=== PATIENT | female | born 1980 | race Caucasian/White ===

== ENCOUNTER → 2018-01-18 08:04 | Outpatient (CLI) | payer BC, SELFPAY ==
[2018-01-18 11:13] LABS: HCT 40.4 % (36.0-46.0); HGB 12.8 g/dL (12.0-15.5); Mean Corp. HGB Concentration 31.7 g/dL (32.0-36.0); Mean Corpuscular Volume 82.1 fL (80-95); Mean Platelet Volume 11.7 fL (8.0-11.0); Platelet Count 325 x1000/uL (130-400); RBC 4.92 m/cumm (4.00-5.20); RBC Distribution Width 14.6 % (11.7-14.6); White Blood Cell Count 7.69 k/cumm (4.4-10.8)
[2018-01-18 11:17] LABS: Iron 77 ug/dL (50-175)
[2018-01-18 11:52] LABS: Ferritin 74 ng/mL (8-388)
== END ==
PROVIDERS: PCP Family Medicine; Visit Provider Family Medicine
DX: D64.9 Anemia, unspecified (principal)
CPT/HCPCS: 36415; 85027; 82728; 83540

== ENCOUNTER → 2018-01-20 09:11 | Outpatient (REF) | payer BC, SELFPAY ==
--- NOTE | 2018-01-20 08:30 | PAPFT_PTH ---
PATIENT: Pauly Abbasi LOC: [facility] U#:[id number] AGE/SX: 44/F ROOM: RE01/20/[address]: Amanda Lopez MD : 1980 BED: DIS: SPEC #: [id number] RECD: 01/20/18 12:57 STATUS: GIA REKamlesh #: [id number] LIZZETH: 01/20/18 08:[address]: Amanda Lopez DEPT: [facility] Cytology RECD BY: Nory Collazo ENTERED: 01/20/18 12:57 SP TYPE: PAPFT OTHR DR: Sienna Baxter MD Tissues: 1 - CX/ENDOCX FOR PAP SMEARS Procedures: PAP THIN PREP/UVM Screening HPV DNA PROBE Comments: [id number]
== END ==
LOC: LBN 09:11
PROVIDERS: PCP Family Medicine; Visit Provider Obstetrics & Gynecology
DX: Z12.4 Encounter for screening for malignant neoplasm of cervix (principal); Z11.51 Encounter for screening for human papillomavirus (HPV)
CPT/HCPCS: 88142; 87624

== ENCOUNTER 2019-01-19 03:54 | Outpatient (CLI) | payer BC, SELFPAY ==
[2019-01-19 10:48] LABS: Hemoglobin A1C 5.6 % (4.5-6.2)
[2019-01-19 10:51] LABS: Iron 64 ug/dL (50-175)
[2019-01-19 11:06] LABS: Calculated LDL 111 mg/dL; Cholesterol 185 mg/dL (50-200); Ferritin 82 ng/mL (8-388); HDL Cholesterol 40 mg/dL (40-60); Triglyceride 173 mg/dL (30-150)
[2019-01-22 08:12] LABS: Vitamin D 25 Total 17.6 ng/ml (30-100)
== END 2019-01-19 04:14 ==
PROVIDERS: PCP Family Medicine; Visit Provider Nurse Practitioner
DX: Z13.1 Encounter for screening for diabetes mellitus (principal); L65.9 Nonscarring hair loss, unspecified; R79.0 Abnormal level of blood mineral; Z13.6 Encounter for screening for cardiovascular disorders
CPT/HCPCS: 36415; 80061; 82306; 83721; 82728; 83036; 83540

== ENCOUNTER 2020-01-22 04:44 | Outpatient (CLI) | payer BC, SELFPAY ==
[2020-01-22 12:28] LABS: HCT 40.5 % (36.0-46.0); HGB 12.8 g/dL (11.2-15.7)
[2020-01-22 12:42] LABS: Iron 64 ug/dL (50-170); Total Iron Binding Capacity 298 ug/dL (250-450); Transferrin Sat 21 % (15-50)
[2020-01-22 12:53] LABS: Ferritin 75 ng/mL (8-252)
[2020-01-24 05:21] LABS: Vitamin D 25 Total 23.8 ng/ml (30-100)
== END 2020-01-22 05:04 ==
PROVIDERS: PCP Family Medicine; Visit Provider Family Medicine
DX: E61.1 Iron deficiency (principal); E55.9 Vitamin D deficiency, unspecified
CPT/HCPCS: 36415; 82306; 82728; 83540; 83550; 85014; 85018

== ENCOUNTER 2021-01-20 14:19 | Outpatient (REF) | payer BC, SELFPAY ==
--- NOTE | 2021-01-20 10:30 | PAPFT_PTH ---
PATIENT: Pauly Abbasi LOC: [facility] U#:[id number] AGE/SX: 40/F ROOM: RE01/20/[address]: CECY Fam : 1980 BED: DIS: 01/20/2021 SPEC #: [id number] RECD: 01/20/21 16:37 STATUS: GIA REKamlesh #: [id number] LIZZETH: 01/20/21 10:[address]: Jesica Barrera DEPT: [facility] Cytology RECD BY: Nory Collazo ENTERED: 01/20/21 16:37 SP TYPE: PAPFT RASHEED DR: Sienna Baxter MD Tissues: 1 - CX/ENDOCX FOR PAP SMEARS Procedures: PAP THIN PREP/UVM Screening HPV DNA PROBE Comments: [id number]
== END 2021-01-20 14:20 | disposition home or self-care (01) ==
LOC: LBN 14:19
PROVIDERS: PCP Family Medicine; Visit Provider Nurse Practitioner Family
DX: Z12.4 Encounter for screening for malignant neoplasm of cervix (principal); Z11.51 Encounter for screening for human papillomavirus (HPV)
CPT/HCPCS: 88142; 87624

== ENCOUNTER 2021-02-02 09:02 | Outpatient (CLI) | payer BC, SELFPAY ==
[2021-02-02 12:32] LABS: HCT 41.5 % (36.0-46.0); HGB 12.9 g/dL (11.2-15.7)
[2021-02-02 12:53] LABS: Iron 70 ug/dL (50-170)
[2021-02-02 13:02] LABS: Ferritin 89 ng/mL (8-252)
[2021-02-02 13:12] LABS: Vitamin D 25 Total 24.1 ng/mL (30-100)
== END 2021-02-02 09:03 | disposition home or self-care (01) ==
LOC: LOS 09:02
PROVIDERS: PCP Family Medicine; Visit Provider Family Medicine
DX: E55.9 Vitamin D deficiency, unspecified (principal); R79.0 Abnormal level of blood mineral
CPT/HCPCS: 36415; 82306; 82728; 83540; 85014; 85018

== ENCOUNTER 2022-03-10 01:15 | Emergency (ER) | payer BC, SELFPAY ==
[2022-03-10] VITALS (34 sets, daily range): BP systolic 115–130; BP diastolic 51–90; PULSE 70–100; RESP 11–26; TEMP 36.3–36.7; O2SAT 96–99
--- NOTE | 2022-03-10 01:23 | ED.GENADUL_ITS ---
Discharge Plan Disposition Patient Disposition: HOME Condition: Improving Discharge Details Clinical Impression: Abscess, peritonsillar Primary Care Provider: Nini Moreira ED Provider: Barron Schreiber [place] Meds and New Rx's Prescriptions: New clindamycin HCl 300 mg capsule 300 mg PO Q6H Qty: 30 0RF Continued cholecalciferol (vitamin D3) [Vitamin D3] 10 mcg (400 unit) tablet 10 mcg PO DAILY semaglutide (weight loss) 0.25 mg/0.5 mL pen injector 0.25 mg subcut QWEEK Qty: 2 0RF Rx Instructions: administer weeks 1 through 4 of therapy iron 18 MG tablet 65 mg PO DAILY Discontinued penicillin V potassium 500 mg tablet 500 mg PO TID Qty: 30 0RF Discharge Instructions Additional Instructions: You were seen in the ED for a sore throat that was worsening despite penicillin. CT scan suggests peritonsillar abscess. You were treated with IV clindamycin and received another dose of steroids. I spoke with Dr. Kimbrough who will see you in his office this morning. We will discontinue the penicillin and you will need to rock picker a new prescription for clindamycin today. Return to ED for any difficulty breathing, inability to swallow, worse pain, other concerns. Referrals: Ten Kimbrough MD [ [facility] STAFF PHYSICIAN] - Medical Decision Making Patient presenting with continued pain and swelling in her throat and neck despite treatment with IM Solu-Medrol and oral penicillin. She is afebrile and does not appear toxic. She has normal breathing and is handling her secretions. She does have asymmetric right greater than left tonsil swelling which potentially represents a RN CLINICAL APPEALS versus tonsillar cellulitis. She definitely has significant anterior cervical adenopathy. IV established and laboratory studies sent. Fluids started. IV clindamycin given. A dose of Toradol and Decadron given. CT scan of the neck ordered. Patient does have elevated white count at 14.5. Banks screen is negative. No report of atypical lymphs. Chemistries with hypokalemia which will be repleted intravenously. CT scan suggestive of of multiloculated abscess right tonsil with associated cervical adenopathy. No definitive large fluid collection. Discussed with patient. Will hold in ED overnight to discuss with ENT in the morning. Patient agreeable with plan. Discussed with Dr. Kimbrough who was able to see the CT scan. Plan is repeat dose of clindamycin at 8 AM and discharge from the ED to his office to be seen there. She will continue on clindamycin 300 mg every 6 hours. She reports feeling much better at this point. Return precautions discussed. Medical Records Medical records reviewed: Yes I reviewed the patient's medical records. Lab Data Lab results reviewed: Yes I reviewed the patient's lab results. HPI General Mode of arrival: ambulatory . Date/Time Provider Initiated Documentation: 03/10/22 01:23 . Limitations to Documentation: no limitations . Information obtained by: patient, RN notes reviewed and old records reviewed . HPI Narrative: Patient is presenting to ED with worsening sore throat and swelling to her neck. Patient reports developing sore throat over the weekend. She was seen at [facility] on Tuesday and diagnosed with strep. She was started on penicillin. She was given a shot of Solu-Medrol due to the swelling in her throat. Patient reports pain has not changed and she feels like the neck swelling and throat swelling is worse. She is able to swallow. She has no difficulty breathing. She denies fever. She denies cough, chest pain, shortness of breath. She has had no nausea or vomiting. She has been using acetaminophen for pain control. Related Data Home Medications Medication Instructions Recorded Confirmed iron 18 mg tablet 65 mg PO DAILY 01/18/18 03/10/22 cholecalciferol (vitamin D3) 10 10 mcg PO DAILY 12/11/19 03/10/22 mcg (400 unit) tablet (Vitamin D3) semaglutide (weight loss) 0.25 0.25 mg (0.5 mL) subcut QWEEK #2 mL 02/12/22 03/10/22 mg/0.5 mL subcutaneous pen injector clindamycin HCl 300 mg capsule 300 mg PO Q6H #30 caps 03/10/22 Previous Rx's Medication Instructions Recorded semaglutide (weight loss) 0.25 0.25 mg (0.5 mL) subcut QWEEK #2 mL 02/12/22 mg/0.5 mL subcutaneous pen injector clindamycin HCl 300 mg capsule 300 mg PO Q6H #30 caps 03/10/22 Allergies Allergy/AdvReac Type Severity Reaction Status Date / Time glyburide Allergy Mild Skin Rash Verified 03/10/22 01:25 Review of Systems Narrative: 03/26 Review of Systems completed and is negative except as stated above in HPI (Systems reviewed: Const, Eyes, ENT, Resp, CV, GI, , MSK, Skin, Neuro) PFSH All Active Problems (Updated 03/10/22 @ 07:20 by Barron Schreiber MD) Abscess, peritonsillar (Acute) Hair loss (Acute 12/27/13) good response to iron suppl.: ferritin >70 - Depressive disorder (Acute) Anxiety (Acute) Abn glucose in preg-unsp (Acute) Impaired glucose tolerance during (Acute) Low ferritin (Acute) Morbid obesity with BMI of 45.0-49.9, adult (Acute) Medical History History of gestational diabetes mellitus (GDM) Surgical History Ligation of fallopian tube Family History Mother Essential hypertension Depression Hyperlipidemia Father Essential hypertension Heart disease Hyperlipidemia Diabetes Sister No problems noted. Brother No problems noted. Maternal Grandfather , 78 Essential hypertension Heart disease Hyperlipidemia Stroke Paternal Grandfather , 78 Diabetes Essential hypertension Depression Heart disease Hyperlipidemia Stroke Maternal Grandmother Breast cancer Diabetes Paternal Grandmother , 80 Essential hypertension Heart disease Daughter No problems noted. Daughter No problems noted. Social History Smoking/Tobacco Use Status: Never Second Hand Exposure: No Smoking risk assessment performed?: Yes Alcohol Intake: never Drug use: Never Substance use type: does not use Caregiver/Support person: No Household members: spouse and children Housing: house Number of Children: 2 Communication Needs: None Education Level: master's degree Do you need help understanding health information?: Never current occupation: works as a teacher at [employer], 3rd, 4th, 5th. Pets and animals: Yes Pets and animals: dog(s) and farm animals Sexually active: Yes Do you think of yourself as: straight/heterosexual Current gender identity: female What is your relationship status?: How often do you talk on the phone with friends or family?: twice per week How often do you get together with friends or relatives?: twice per week Do you belong to any clubs or organized social groups?: no Panel score (0-1 are the most socially isolated patients): 2 Duration: 15-30 minutes/day Frequency: 5-6 times per week Thelma/Baptist: None Special thelma needs: No Seatbelt use: always Helmet use: Yes Helmet use: always Drive intox or ride w/intox courier delivery driver: No Exam Narrative Exam Narrative: Const: Obese female in NAD. HEENT: NC/AT. Normal facial exam. TMs normal bilaterally. Oropharynx with asymmetric swelling of the tonsils right greater than left with erythema and slight exudate. Uvula is midline. Eyes: Normal conjunctiva and sclera. Neck: Supple. Trachea midline. Bilateral large anterior cervical adenopathy. Lungs: Normal respiratory effort. Lungs are clear. Cor: RRR without murmur/gallop. Good radial pulses. GI: Soft and ND Neuro: A+O x 3. Normal speech, mentation, gait. Cranial nerves II - XII grossly intact. No gross motor or sensory deficit. Ext: No C/C/E. Skin: Warm and dry without rash.
--- NOTE | 2022-03-10 01:30 | DI.CT_ITS ---
Exam(s) CT NECK W EXAM: CT NECK W CLINICAL HISTORY: right sided throat pain/swelling; eval for abscess TECHNIQUE: COMPARISON: No exams were available for comparison FINDINGS: CT examination of the cervical region was performed with bolus infusion of 100 cc of Omnipaque 350. Images obtained through the brain are unremarkable. Orbital structures appear intact. No sinus mast oid pathology. There is enlargement of the palatine tonsils bilaterally, right greater than left, with heterogeneous appearance of the tonsils bilaterally. Findings are suggestive of acute tonsillitis with no drainab le abscess collection identified. Mild enlargement of the right submandibular gland is noted compare d to the left. Parotid glands are unremarkable in appearance. Tracheolaryngeal structures appear in tact except for deviation of the pharynx to the left at the level of the right palatine tonsil. Mild nonspecific prominence of cervical lymph nodes noted. Visualized lung apices are clear. IMPRESSION: The appearance is consistent with tonsillitis, predominantly involving right palatine tonsil, no drai nable abscess identified. RADIATION DOSE DELIVERED: 509.71mGy.cm Total DLP !Error CTDIvol DATA REPOSITORY: All CT scans at this facility are submitted to the National Radiology Data Registry (NRDR) Dose Index Registry (DIR) with the [employer] (ACR). RADIATION OPTIMIZATION: All CT scans at this facility use at least one of these dose optimization te chniques: automated exposure control; mA and/or kV adjustment per patient size (includes targeted exa ms where dose is matched to clinical indication); or iterative reconstruction.
[2022-03-10] MEDS: Normal Saline 1,000 ML 1000 ML IV (01:50)
[2022-03-10 01:55] LABS: Abs Immature Grans 0.04 10^3/uL (0.0-0.06); Absolute Basophil Count 0.09 10^3/uL (0.0-0.2); Absolute Eosinophil Count 0.09 10^3/uL (0.0-0.7); Absolute Lymphocyte Count 3.18 10^3/uL (1.2-3.4); Absolute Monocyte Count 1.06 10^3/uL (0.1-0.8); Absolute Neutrophil Count 10.01 10^3/uL (1.2-6.7); Basophils % 0.6; Eosinophils % 0.6; Immature Grans % 0.3; MCH 25.4 pg (27.0-33.0); MCHC 31.6 % (32.0-36.0); MCV 81 fL (80-95); Monocytes % 7.3; Neutrophils % 69.2; Platelet Count 311 10^3/uL (130-400); RBC 4.72 10^6/uL (3.93-5.22); RDW 14.5 % (11.7-14.6); RDW-SD 42.7 fL; WBC 14.46 10^3/uL (4.4-10.8)
[2022-03-10 02:01] LABS: Mono Screening Negative (Negative)
[2022-03-10 02:04] LABS: Anion Gap 9.1 mmol/L (3-11); BUN 12 mg/dL (7-18); CO2 25.9 mmol/L (21.0-32.0); CREATININE 0.9 mg/dL (0.55-1.02); Chloride 102 mmol/L (98-107); Estimated GFR 82.37 (mL/min/1.73m2); Glucose 116 mg/dL (74-106); Sodium 137 mmol/L (136-145)
[2022-03-10 02:05] LABS: Potassium 2.9 mmol/L (3.5-5.1)
--- NOTE | 2022-03-10 02:14 | NUR.NOTE ---
refused urine test. says she has no fallopian tubes. does not want test.Nursing Note:
[2022-03-10] MEDS: Omnipaque 350 MG/ML 100 ML BTL IJ (02:21)
[2022-03-10] MEDS: Normal Saline Flush 10 ML SYR IVP (02:22)
[2022-03-10] MEDS: Dexamethasone 10 MG/ML VIAL 8 MG IVP (02:35)
[2022-03-10] MEDS: Ketorolac 15 MG/ML VIAL IVP (02:38)
[2022-03-10] MEDS: CLINDAMYCIN 900 MG/50 ML BAG 100 MG IVPB (02:40)
--- NOTE | 2022-03-10 02:41 | DI.VRAD_ITS ---
PROCEDURE INFORMATION: Exam: CT Neck With Contrast Exam date and time: 03/10/2022 2:08 AM Age: 41 years old Clinical indication: Patient HX: Right sided throat pain/swelling; Eval for abscess TECHNIQUE: Imaging protocol: Computed tomography of the neck with contrast. Radiation optimization: All CT scans at this facility use at least one of these dose optimization techniques: automated exposure control; mA and/or kV adjustment per patient size (includes targeted exams where dose is matched to clinical indication); or iterative reconstruction. Contrast material: OMNIPAQUE 350; Contrast volume: 100 ml; Contrast route: INTRAVENOUS (IV); COMPARISON: No relevant prior studies available. FINDINGS: Oral cavity: Normal rip sawyer spaces. Pharynx: Large palatine tonsils noted bilaterally, right greater than left. Numerous small low-attenuation structures are present in the right palatine tonsil, extending into the soft palate. There is no air within the collections. The collections measure up to 1.2 cm diameter. Adenoid tissues are unremarkable. Parapharyngeal fat stranding is noted on the right. Larynx: Normal epiglottis. Unremarkable larynx. Prevertebral and retropharyngeal spaces: Unremarkable. No abnormal retropharyngeal fluid. Salivary glands: Fat stranding is observed around the right submandibular gland. No fluid collections observed. Normal left submandibular gland. Normal parotid glands. Thyroid: Unremarkable thyroid. Lymph nodes: Cervical lymph nodes are large bilaterally. A right level IIa lymph node measures 1.6 x 2.1 cm, axial image 47. Trachea: Visualized trachea is unremarkable. Lungs: Unremarkable as visualized. Bones/joints: No significant degenerative changes observed in the cervical spine. Soft tissues: No abnormal soft tissue gas. IMPRESSION: Suspect multiloculated abscess in the right palatine tonsil. Dictated and Authenticated by: Jaquan Almendarez MD. Ordering:ROSALINE Mart MD
[2022-03-10] MEDS: POTASSIUM CHLORIDE 10 MEQ/100 ML BAG 100 MEQ IVPB (03:25)
[2022-03-10] MEDS: Normal Saline 1,000 ML 125 ML IV (05:10)
[2022-03-10] MEDS: CLINDAMYCIN 900 MG/50 ML BAG 50 MG IVPB (08:18)
== END 2022-03-10 09:05 | disposition home or self-care (01) ==
PROVIDERS: Emergency Provider Emergency Medicine; PCP Family Medicine
DX: J36 Peritonsillar abscess (principal); E87.6 Hypokalemia; D72.829 Elevated white blood cell count, unspecified
CPT/HCPCS: 36415; 70491; 80048; 96361; 96365; 96366; 96367; 96375; 99285; 85025; 86308; 99284; J1100; J1885; J3480; J3490

== ENCOUNTER 2022-05-04 08:03 | Outpatient (CLI) | payer BC, SELFPAY ==
[2022-05-04 12:39] LABS: Abs Immature Grans 0.02 10^3/uL (0.0-0.06); Absolute Basophil Count 0.07 10^3/uL (0.0-0.2); Absolute Eosinophil Count 0.19 10^3/uL (0.0-0.7); Absolute Lymphocyte Count 3.24 10^3/uL (1.2-3.4); Absolute Monocyte Count 0.51 10^3/uL (0.1-0.8); Absolute Neutrophil Count 4.34 10^3/uL (1.2-6.7); Basophils % 0.8; Eosinophils % 2.3; HCT 41.7 % (36.0-46.0); HGB 13.4 g/dL (11.2-15.7); Immature Grans % 0.2; Lymphocytes % 38.7; MCH 26.3 pg (27.0-33.0); MCHC 32.1 % (32.0-36.0); MCV 82 fL (80-95); MPV 11.3 fL (8.0-11.0); Monocytes % 6.1; Neutrophils % 51.9; Platelet Count 383 10^3/uL (130-400); RBC 5.09 10^6/uL (3.93-5.22); RDW 15.2 % (11.7-14.6); RDW-SD 45.9 fL; WBC 8.37 10^3/uL (4.4-10.8)
[2022-05-04 13:02] LABS: ALT 18 U/L (14-59); AST 32 U/L (15-37); Albumin 3.9 g/dL (3.4-5.0); Alkaline Phosphatase 72 U/L (46-116); Anion Gap 8.7 mmol/L (3-11); BUN 15 mg/dL (7-18); Bilirubin, Total 0.3 mg/dL (0.2-1.0); CO2 27.3 mmol/L (21.0-32.0); CREATININE 0.8 mg/dL (0.55-1.02); Calcium 8.9 mg/dL (8.5-10.1); Chloride 103 mmol/L (98-107); Estimated GFR 94.87 (mL/min/1.73m2); Glucose 93 mg/dL (74-106); Potassium 4.4 mmol/L (3.5-5.1); Sodium 139 mmol/L (136-145); TSH (W/Ref FT4) 2.95 uIU/mL (0.36-3.74); Total Protein 7.6 g/dL (6.4-8.2)
== END 2022-05-04 08:04 | disposition home or self-care (01) ==
LOC: LOS 08:04
PROVIDERS: PCP Family Medicine; Referring Provider Family Medicine; Visit Provider Family Medicine
DX: E66.01 Morbid (severe) obesity due to excess calories (principal); Z68.41 Body mass index [BMI] 40.0-44.9, adult; D72.829 Elevated white blood cell count, unspecified
CPT/HCPCS: 36415; 80053; 84443; 85025

== ENCOUNTER 2023-02-18 01:40 | Outpatient (CLI) | payer BC, SELFPAY ==
[2023-02-18 12:20] LABS: HCT 41.5 % (36.0-46.0); MCH 25.6 pg (27.0-33.0); MCHC 31.3 % (32.0-36.0); MCV 82 fL (80-95); Platelet Count 373 10^3/uL (130-400); RBC 5.07 10^6/uL (3.93-5.22); RDW 14.3 % (11.7-14.6); RDW-SD 42.4 fL; WBC 8.05 10^3/uL (4.4-10.8)
[2023-02-18 12:30] LABS: Iron 63 ug/dL (50-170); Total Iron Binding Capacity 312 ug/dL (250-450); Transferrin Sat 20 % (15-50)
[2023-02-18 12:49] LABS: ALT 22 U/L (14-59); AST 13 U/L (15-37); Albumin 3.6 g/dL (3.4-5.0); Alkaline Phosphatase 72 U/L (46-116); BUN 15 mg/dL (7-18); Bilirubin, Total 0.3 mg/dL (0.2-1.0); CREATININE 0.8 mg/dL (0.55-1.02); Calcium 8.5 mg/dL (8.5-10.1); Calculated LDL 79 mg/dL (<100); Chloride 105 mmol/L (98-107); Cholesterol 153 mg/dL (<200); Estimated GFR 94.28 (mL/min/1.73m2); Glucose 96 mg/dL (74-106); HDL Cholesterol 44 mg/dL (40-60); Sodium 138 mmol/L (136-145); TSH (W/Ref FT4) 2.33 uIU/mL (0.36-3.74); Total Protein 7.5 g/dL (6.4-8.2); Triglyceride 154 mg/dL (<150)
[2023-02-21 11:22] LABS: HIV-1/2 Ag & Ab Screen Negative (Negative)
[2023-02-21 11:27] LABS: Hepatitis C Ab w Rflx HCV PCR Negative (Negative)
== END 2023-02-18 01:41 | disposition home or self-care (01) ==
LOC: LOS 01:40
PROVIDERS: PCP Family Medicine; Visit Provider Family Medicine
DX: E03.9 Hypothyroidism, unspecified (principal); L65.9 Nonscarring hair loss, unspecified; Z13.6 Encounter for screening for cardiovascular disorders; E66.01 Morbid (severe) obesity due to excess calories; Z00.00 Encounter for general adult medical examination without abnormal findings; Z68.41 Body mass index [BMI] 40.0-44.9, adult; R73.01 Impaired fasting glucose; R79.0 Abnormal level of blood mineral; Z11.4 Encounter for screening for human immunodeficiency virus [HIV]
CPT/HCPCS: 36415; 80053; 80061; 82306; 85027; 86803; 87389; 83036; 83540; 83550; 84443

== ENCOUNTER 2024-03-26 09:07 | Outpatient (REF) | payer BC, SELFPAY ==
--- NOTE | 2024-03-26 09:00 | PAPFT_PTH ---
PATIENT: Pauly Abbasi LOC: [facility] U#:[id number] AGE/SX: 43/F ROOM: RE03/26/[address]: Renetta Walton NP : 1980 BED: DIS: 03/26/2024 SPEC #: [id number] RECD: 03/26/24 12:53 STATUS: GIA REQ #: [id number] LIZZETH: 03/26/24 09:[address]: Isabelle BORJA,Renetta DEPT: [facility] Cytology RECD BY: Phuong Hoyt ENTERED: 03/26/24 12:54 SP TYPE: PAPFT OTHR DR: Nini Moreira Tissues: 1 - CX/ENDOCX FOR PAP SMEARS Procedures: PAP THIN PREP/UVM Screening HPV DNA PROBE Comments: [id number] (HPV 16 & 18/45)
== END 2024-03-26 09:08 | disposition home or self-care (01) ==
LOC: LBN 09:07
PROVIDERS: PCP Family Medicine; Visit Provider Nurse Practitioner Women's Health
DX: Z11.51 Encounter for screening for human papillomavirus (HPV) (principal); Z01.419 Encounter for gynecological examination (general) (routine) without abnormal findings
CPT/HCPCS: 88142; 87624

== ENCOUNTER 2024-03-31 10:06 | Outpatient (CLI) | payer BC, SELFPAY ==
--- NOTE | 2024-03-31 10:30 | DI.RAD_ITS ---
Exam(s) XR KNEE LT 3V AP,LAT,WENDY EXAM: XR KNEE LT 3V AP,LAT,WENDY CLINICAL HISTORY: knee pain and swelling. left. TECHNIQUE: 2D digital imaging was performed of the left knee. Three images were obtained. AP, late ral and PA tunnel views were obtained. COMPARISON: No exams were available for comparison FINDINGS: BONES: No acute fracture is present. No bony destructive lesion is seen. JOINTS: There are mild degenerative changes seen in the medial femoral tibial joint with joint space narrowing and osteophytes present. There is a joint effusion present. There is mild spurring of the posterior patella. No loose body. SOFT TISSUE: Normal. IMPRESSION: 1. Mild degenerative changes of the knee and small joint effusion. 2. No acute fracture or dislocation. DATA REPOSITORY: RADIATION DOSE DELIVERED:
--- NOTE | 2024-03-31 11:29 | DI.VRAD_ITS ---
PROCEDURE INFORMATION: Exam: XR Left Knee Exam date and time: 03/31/2024 10:40 AM Age: 43 years old Clinical indication: Other: Knee pain and swelling. Left TECHNIQUE: Imaging protocol: Radiologic exam of the left knee. Views: 3 views. COMPARISON: No relevant prior studies available. FINDINGS: Bones/joints: There is no evidence of acute fracture.There is no evidence of malalignment or dislocation. Mild joint space narrowing in the medial compartment may indicate early degenerative changes. Soft tissues: Normal. IMPRESSION: 1. There is no evidence of acute fracture.There is no evidence of malalignment or dislocation. 2. Mild joint space narrowing in the medial compartment may indicate early degenerative changes. Dictated and Authenticated by: Ira Dela Cruz MD. Ordering:SUZANNA Aceves MD
== END 2024-03-31 10:26 ==
PROVIDERS: PCP Family Medicine; Visit Provider Physician Assistant
DX: M17.12 Unilateral primary osteoarthritis, left knee (principal)
CPT/HCPCS: 73562

== ENCOUNTER 2024-03-31 11:16 | Outpatient (REF) | payer BC, SELFPAY ==
[2024-03-31 18:13] LABS: Abs Immature Grans 0.02 10^3/uL (0.0-0.06); Absolute Basophil Count 0.08 10^3/uL (0.0-0.2); Absolute Eosinophil Count 0.14 10^3/uL (0.0-0.7); Absolute Lymphocyte Count 2.56 10^3/uL (1.2-3.4); Absolute Monocyte Count 0.57 10^3/uL (0.1-0.8); Absolute Neutrophil Count 4.93 10^3/uL (1.2-6.7); Eosinophils % 1.7 %; HCT 42.3 % (36.0-46.0); HGB 13.4 g/dL (11.2-15.7); Immature Grans % 0.2 %; Lymphocytes % 30.8 %; MCH 26.4 pg (27.0-33.0); MCHC 31.7 % (32.0-36.0); MCV 83 fL (80-95); MPV 11.7 fL (8.0-11.0); Monocytes % 6.9 %; Neutrophils % 59.4 %; Platelet Count 370 10^3/uL (130-400); RBC 5.07 10^6/uL (3.93-5.22); RDW 14.4 % (11.7-14.6); RDW-SD 43.8 fL
[2024-03-31 18:14] LABS: ESR 27 mm/hr (0-20)
[2024-04-01 16:46] LABS: Rheumatoid Factor <8.6 IU/mL (<12.0)
[2024-04-02 11:02] LABS: Lyme Ab w Rflx to Lyme Confirm Negative (Negative)
[2024-04-02 15:31] LABS: ANA Interpretation Negative (Negative)
[2024-04-03 15:34] LABS: Anaplasma phagocytophilum Negative (Negative); B. miyamotoi PCR Negative (Negative); Babesia divergens/MO-1 Negative (Negative); Babesia duncani Negative (Negative); Babesia microti Negative (Negative); Ehrlichia chaffeensis Negative (Negative); Ehrlichia ewingii/canis Negative (Negative); Ehrlichia muris eauclairensis Negative (Negative)
== END 2024-03-31 11:17 | disposition home or self-care (01) ==
LOC: LBN 11:16
PROVIDERS: PCP Family Medicine; Visit Provider Physician Assistant
DX: M25.562 Pain in left knee (principal)
CPT/HCPCS: 85652; 87798; 85025; 86038; 86431; 86618

== ENCOUNTER 2024-04-27 00:14 | Outpatient (CLI) | payer BC, SELFPAY ==
--- NOTE | 2024-04-27 06:15 | DI.MRI_ITS ---
Exam(s) MR LOWER JOINT LT WO EXAM: MR LOWER JOINT LT WO CLINICAL HISTORY: left knee effusion,m25.462. TECHNIQUE: Multiplanar multisequence MRI was performed. COMPARISON: CR,XR XR KNEE LT 3V AP,LAT,WENDY from 03/31/2024 FINDINGS: BONES: There is no fracture or contusion pattern. Mild edema medial tibial plateau could be degener ative. Mild spurring at the medial femoral condyle and medial tibial plateau. Some red marrow recon version is seen. JOINTS: A large joint effusion is present. Articular cartilage: Patellofemoral joint: Thinning at the patellar apex extending down to bone. Medial femoral tibial joint: Thinning of cartilage over medial femoral condyle and medial tibial louie teau. Lateral femoral tibial joint: Articular cartilage is unremarkable. LIGAMENTS/TENDONS: Anterior Cruciate: Unremarkable. Posterior Cruciate: Unremarkable. Medial Collateral:Unremarkable. Lateral Collateral ligament complex: Unremarkable. Extensor mechanism: Unremarkable. Medial retinaculum: Unremarkable. Lateral retinaculum: Unremarkable. Popliteus: Unremarkable. MENISCI: The medial meniscus is peripherally displaced. Some high signal noted in the body and posterior horn . Findings suspicious for tear at the root. The lateral meniscus is unremarkable. MUSCLES: Unremarkable. SOFT TISSUES: Mild anterior soft tissue edema. Small Stephenson's cyst. IMPRESSION: Large joint effusion. Degenerative changes of the meniscus and medial femoral tibial joint space. Tear at the root of the posterior horn. 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 DATA REPOSITORY:
== END 2024-04-27 00:34 ==
LOC: DI 00:14
PROVIDERS: PCP Family Medicine; Visit Provider Family Medicine
DX: M23.222 Derangement of posterior horn of medial meniscus due to old tear or injury, left knee (principal)
CPT/HCPCS: 73721

== ENCOUNTER 2025-02-26 21:03 | Outpatient (REF) | payer BC, SELFPAY | END 2025-02-26 21:04 | disposition home or self-care (01) | LOC: LBN 21:03 | PROVIDERS: PCP Family Medicine; Visit Provider Physician Assistant | DX: L98.9 Disorder of the skin and subcutaneous tissue, unspecified (principal) | CPT/HCPCS: 87077; 87070; 87186; 87205 ==

== ENCOUNTER 2025-02-27 03:24 | Inpatient (IN) | payer BC, SELFPAY ==
[2025-02-27] VITALS (7 sets, daily range): BP systolic 114–149; BP diastolic 68–108; PULSE 82–102; RESP 16–22; TEMP 36.5–38.2; O2SAT 98–100
--- NOTE | 2025-02-27 03:30 | W.ED.GENAD ---
Discharge Plan Discharge Details Chief Complaint: EarProblem Primary Care Provider: Nini Moreira ED Provider: Barron Schreiber [facility] and New Rx's Prescriptions: No Action cholecalciferol (vitamin D3) [Vitamin D3] 10 mcg (400 unit) tablet 4,000 unit PO DAILY ofloxacin 0.3 % drops 10 drp otic (ear) DAILY 7 Days Qty: 5 0RF amoxicillin-pot clavulanate 875-125 mg tablet 1 tab PO Q12H Qty: 14 0RF iron 18 MG tablet 65 mg PO DAILY semaglutide (weight loss) 2.4 mg/0.75 mL pen injector 2.4 mg subcut QWEEK Qty: 3 5RF HPI General Mode of arrival: ambulatory. Date/Time Provider Initiated Documentation: 02/27/25 03:29. Limitations to Documentation: no limitations. Information obtained by: patient, RN notes reviewed and old records reviewed. HPI Narrative: Patient presents to ED with increasing pain and swelling involving the right ear and face. Patient reports that she began having ear discomfort about a week ago. Seem to get better after a couple of days and then worse. Seen at [facility] today and started on ofloxacin eardrops and Augmentin antibiotic. Overnight pain has become worse and she has developed swelling to the right side of her face. Has significantly decreased hearing. Is able to open and close mouth without difficulty. Denies difficulty breathing or swallowing. Denies significant headache. Related Data Home Medications ?Medication ?Instructions ?Recorded ?Confirmed iron 18 mg tablet 65 mg PO DAILY 01/18/18 02/27/25 cholecalciferol (vitamin D3) 10 4,000 unit PO DAILY 02/16/23 02/27/25 mcg (400 unit) tablet (Vitamin D3) semaglutide (weight loss) 2.4 2.4 mg (0.75 mL) subcut QWEEK #3 mL 12/10/24 02/27/25 mg/0.75 mL subcutaneous pen injector amoxicillin 875 mg-potassium 1 tab PO Q12H #14 tabs 02/26/25 02/27/25 clavulanate 125 mg tablet ofloxacin 0.3 % ear drops 10 drp otic (ear) DAILY 7 days #5 02/26/25 02/27/25 mL Previous Rx's ?Medication ?Instructions ?Recorded semaglutide (weight loss) 2.4 2.4 mg (0.75 mL) subcut QWEEK #3 mL 12/10/24 mg/0.75 mL subcutaneous pen injector amoxicillin 875 mg-potassium 1 tab PO Q12H #14 tabs 02/26/25 clavulanate 125 mg tablet ofloxacin 0.3 % ear drops 10 drp otic (ear) DAILY 7 days #5 02/26/25 mL Allergies Allergy/AdvReac Type Severity Reaction Status Date / Time glyburide Allergy Mild Skin Rash Verified 02/26/25 16:41 General SUKH: 3 Exam Narrative Exam Narrative: Const: Obese female in NAD. VS per triage. HEENT: NC/AT. Right preauricular swelling with mild tenderness but no erythema. Right ear canal completely closed and swollen, unable to visualize TM. Able to open and close mouth fully. Normal-appearing oropharynx and pharynx. Neck: Supple. Trachea midline. Bilateral anterior adenopathy. Lungs: Normal respiratory effort. Neuro: A+O x 3. Normal speech, mentation, gait. Cranial nerves II - XII grossly intact. No gross motor or sensory deficit. Medical Decision Making I reviewed the express care note from yesterday. TM was visualized and drainage/discharge was present and cultured. Gram stain for this specimen with many gram-negative rods present. Patient is not a known diabetic. However given the progressive worsening in less than 24 hours now with facial swelling should consider necrotizing external otitis. Will place IV and start fluids. Will dose with IV ciprofloxacin after blood cultures obtained. Morphine for pain control. Laboratory studies sent. CT scan of the temporal bones with and without contrast ordered. Patient white count slightly elevated to 12.95. Normal differential. Sed rate is normal. C-reactive protein elevated to 1.86. Hemoglobin A1c normal at 5.4. BMP normal. CT scan with and without contrast of the temporal bones are still pending at this time. Patient be signed out to oncoming ED physician Dr. Diallo. Patient has remained stable. No change in clinical status in regards to facial swelling, trismus, breathing or swallowing. Medical Records Medical records reviewed: Yes I reviewed the patient's medical records. Medical records narrative: see [facility] Lab Data Lab results reviewed: Yes I reviewed the patient's lab results. Lab results narrative: see [facility] PFSH All Active Problems Tear of medial meniscus of left knee (Acute) Degenerative arthritis of left knee (Acute) Effusion, left knee (Acute) Morbid obesity with BMI of 40.0-44.9, adult (Acute) Low ferritin (Acute) Anxiety (Acute) Depressive disorder (Chronic) Hair loss (Acute 12/27/13) good response to iron suppl.: ferritin >70 - Medical History History of gestational diabetes mellitus (GDM) Surgical History Ligation of fallopian tube Family History Mother Age: 70 Essential hypertension Depression Hyperlipidemia Father Age: 73 Essential hypertension Heart disease Hyperlipidemia Diabetes Sister No problems noted. Brother No problems noted. Maternal Grandfather , 78 Essential hypertension Heart disease Hyperlipidemia Stroke Paternal Grandfather , 78 Diabetes Essential hypertension Depression Heart disease Hyperlipidemia Stroke Maternal Grandmother Breast cancer Diabetes Paternal Grandmother , 80 Essential hypertension Heart disease Daughter No problems noted. Daughter No problems noted. Social History Smoking/Tobacco Use Status: Never Second Hand Exposure: No Smoking risk assessment performed?: Yes Alcohol Intake: current Alcohol Intake frequency: holidays/special occasions only Alcohol type: wine Drug use: Never Substance use type: does not use Caregiver/Support person: No Household members: spouse and children Housing: house Number of Children: 2 Communication Needs: None Education Level: master's degree Do you need help understanding health information?: Never current occupation: works as a teacher at [employer], 3rd, 4th, 5th. Pets and animals: Yes Pets and animals: dog(s) and farm animals Sexually active: Yes Do you think of yourself as: straight/heterosexual Current gender identity: female What is your relationship status?: How often do you talk on the phone with friends or family?: twice per week How often do you get together with friends or relatives?: twice per week Do you belong to any clubs or organized social groups?: no Panel score (0-1 are the most socially isolated patients): 2 Duration: 15-30 minutes/day Frequency: 5-6 times per week Thelma/Oriental Orthodox: None Special thelma needs: No Seatbelt use: always Helmet use: Yes Helmet use: always Drive intox or ride w/intox rickshaw driver: No Do you feel safe at home: Yes Do you feel safe in your relationship?: Yes Female Reproductive History Menstrual control method: permanent sterilization History History 2 Para 2 Hx # Term Pregnancies Multiple births Hx # Pregnancies Ectopic pregnancies AB induced Hx Number of Living Children AB spontaneous
--- NOTE | 2025-02-27 03:45 | DI.CT_ITS ---
Exam(s) CT TEMPORAL BONE WO/W EXAM: CT TEMPORAL BONE WO/W CLINICAL HISTORY: right otitis externa with facial swelling/pain. TECHNIQUE: Imaging Protocol: Axial computed tomography images with coronal and sagittal reformatted images were created and reviewed. CONTRAST MATERIAL: Intravenous: Omnipaque 350 Contrast volume:100 mL contrast route:IV - COMPARISON: No exams were available for comparison FINDINGS: Right temporal bone There is diffuse soft tissue swelling over the lateral right side of the face and circumferential swelling of the tissues of the right external auditory canal. There is some density seen in the right middle ear cavity just lateral to the ossicles. No evidence of obvious ossicle destruction. There is also some fluid in its lateral right mastoid air cells. The cochlea and vestibule appear unremarkable. Semicircular canals appear unremarkable. Left Temporal Bone: No significant findings. IMPRESSION: Findings are consistent with malignant otitis externa and there is also evidence of otitis media and ipsilateral mastoid effusion. There is prominent swelling over the right-side of the face. No gas in the soft tissues. [facility] preliminary report was reviewed Findings discussed by phone with ER physician 02/27/2025 12:30 p.m. RADIATION DOSE DELIVERED: 372.39mGy.cm Total DLP DATA REPOSITORY: All CT scans at this facility are submitted to the National Radiology Data Registry (NRDR) Dose Index Registry (DIR) with the [employer] (A[employer]). RADIATION OPTIMIZATION: All CT scans at this facility use at least one of these dose optimization techniques: automated exposure control; mA and/or kV adjustment per patient size (includes targeted exams where dose is matched to clinical indication); or iterative reconstruction.
[2025-02-27 04:02] LABS: Abs Immature Grans 0.03 10^3/uL (0.0-0.06); HCT 41.2 % (36.0-46.0); HGB 13.1 g/dL (11.2-15.7); Immature Grans % 0.2 %; MCH 26.3 pg (27.0-33.0); MCHC 31.8 % (32.0-36.0); MCV 83 fL (80-95); MPV 10.4 fL (8.0-11.0); Platelet Count 371 10^3/uL (130-400); RBC 4.99 10^6/uL (3.93-5.22); RDW 14.0 % (11.7-14.6); RDW-SD 41.9 fL; WBC 12.95 10^3/uL (4.4-10.8)
[2025-02-27 04:05] LABS: ESR 17 mm/hr (0-20)
[2025-02-27 04:16] LABS: Anion Gap 9.2 mmol/L (3-11); BUN 16 mg/dL (7-18); C-Reactive Protein 1.86 mg/dL (<or=0.5); CO2 28.8 mmol/L (21.0-32.0); Calcium 9.2 mg/dL (8.5-10.1); Chloride 103 mmol/L (98-107); Estimated GFR 109.30 (mL/min/1.73m2); Glucose 105 mg/dL (74-106); Potassium 3.7 mmol/L (3.5-5.1); Sodium 141 mmol/L (136-145)
[2025-02-27] MEDS: Omnipaque 350 MG/ML 100 ML BTL IJ (04:30)
[2025-02-27] MEDS: Normal Saline - Diluent 50 ML VIAL IJ (04:30)
[2025-02-27] MEDS: Normal Saline Flush 10 ML SYR IVP ×2 (04:30→20:00)
[2025-02-27] MEDS: CIPROFLOXACIN 400 MG/200 ML BAG 200 MG IVPB ×2 (04:31→15:51)
[2025-02-27] MEDS: Normal Saline 1,000 ML 1000 ML IV (04:31)
[2025-02-27] MEDS: MORPHine 4 MG/ML SYR IVP (04:32)
[2025-02-27 04:50] LABS: HCG Qual (Serum) Negative; Hemoglobin A1C 5.4 % (<5.7)
--- NOTE | 2025-02-27 07:12 | DI.VRAD_ITS ---
PROCEDURE INFORMATION: Exam: CT Temporal Bones Without and With Contrast. Exam date and time: 02/27/2025 4:21 AM Age: 44 years old Clinical indication: Other: Ear; Right otitis externa with facial swelling/pain TECHNIQUE: Imaging protocol: Computed tomography of the temporal bones without and with contrast. Radiation optimization: All CT scans at this facility use at least one of these dose optimization techniques: automated exposure control; mA and/or kV adjustment per patient size (includes targeted exams where dose is matched to clinical indication); or iterative reconstruction. Contrast material: OMNIPAQUE 350; Contrast volume: 100 ml; Contrast route: INTRAVENOUS (IV); COMPARISON: CT NECK W 03/10/2022 2:08 AM FINDINGS: Right inner ear: Normal. Right ossicles and middle ear: Mild mucosal thickening is seen in the right middle ear. Ossicles are unremarkable. Right external auditory canal: . There is mucosal thickening in the right external auditory canal consistent with otitis externa. Right facial nerve canal: Normal. Right jugular foramen: No jugular dehiscence. Right carotid canal: No aberrant carotid canal. Right mastoid air cells: Moderate fluid in the mastoid sinus. No osseous destruction. Right temporomandibular joint: Degenerative changes in the right temporomandibular joint. Left inner ear: Normal. Left ossicles and middle ear: Normal. The middle ear ossicles are intact. Left external auditory canal: Normal. Left facial nerve canal: Normal. Left jugular foramen: No jugular dehiscence. Left carotid canal: No aberrant carotid canal. Left mastoid air cells: Normal. No mastoid effusions. Paranasal sinuses: Paranasal sinuses are well aerated. Salivary glands: There is edema of the right parotid gland secondary to the quadrant canal inflammation. Soft tissues: Soft tissue swelling is seen around the external auditory canal IMPRESSION: Right otitis externa and mild right otitis media. Right mastoid sinus effusion. Osteoarthritis of the right temporomandibular joint. Dictated and Authenticated by: Andreia George MD. Orderin Abdoul Mart MD
--- NOTE | 2025-02-27 08:29 | W.EDPROG ---
Date of service: 02/27/25 Time of Service: 08:29 Medical Decision Making Patient was signed out to me by my colleague Dr. Schreiber. Please refer to his HPI, physical exam, assessment and plan. Laboratory workup shows evidence of white count with mild left shift, no bandemia. Electrolytes stable, CRP is elevated, ESR is normal. Hemoglobin A1c is also normal. CT scan results have returned and shows evidence of right sided otitis externa with right-sided otitis media, right mastoid sinus effusion, osteoarthritis of the right TMJ but no evidence of mastoid bony degradation or abscess formation. With the patient meeting sepsis criteria and being febrile, tachycardic with an elevated white count and an infectious source, I do feel that IV antibiotics and admission are indicated. She was started on IV Cipro [address] May. I did contact Dr. Kimbrough of ENT he recommends continuing Cipro 400 mg twice daily for pseudomonal coverage, as well is eventually transitioning to 750 mg oral twice daily for outpatient coverage once her symptoms improved. He recommends adding Ciprodex to help with the inflammation. A wick was placed, she tolerated this well and Ciprodex was added. Discussed the case with hospitalist Dr. Strong, he agrees with the assessment and plan. I have extensively reviewed the treatment plan with the patient. I have addressed all patient concerns at this time. I have also discussed the plan with the admitting physician and they agree with the current assessment and plan and have agreed to assume responsibility for the patient. All parties demonstrate verbal understanding and agreement with our assessment and plan at this time. The documentation in this chart was dictated using [employer] dictation software. Please excuse any dictation errors. FINDINGS: Right inner ear: Normal. Right ossicles and middle ear: Mild mucosal thickening is seen in the right middle ear. Ossicles are unremarkable. Right external auditory canal: . There is mucosal thickening in the right external auditory canal consistent with otitis externa. Right facial nerve canal: Normal. Right jugular foramen: No jugular dehiscence. Right carotid canal: No aberrant carotid canal. Right mastoid air cells: Moderate fluid in the mastoid sinus. No osseous destruction. Right temporomandibular joint: Degenerative changes in the right temporomandibular joint. Left inner ear: Normal. Left ossicles and middle ear: Normal. The middle ear ossicles are intact. Left external auditory canal: Normal. Left facial nerve canal: Normal. Left jugular foramen: No jugular dehiscence. Left carotid canal: No aberrant carotid canal. Left mastoid air cells: Normal. No mastoid effusions. Paranasal sinuses: Paranasal sinuses are well aerated. Salivary glands: There is edema of the right parotid gland secondary to the quadrant canal inflammation. Soft tissues: Soft tissue swelling is seen around the external auditory canal IMPRESSION: Right otitis externa and mild right otitis media. Right mastoid sinus effusion. Osteoarthritis of the right temporomandibular joint. Thank you for allowing us to participate in the care of your patient. Dictated and Authenticated by: Andreia George MD 02/27/2025 7:12 AM Eastern Time ([place] & [place]) Discharge Plan Disposition Patient Disposition: Admit to [facility] Condition: Good Discharge Details Clinical Impression: Acute malignant otitis externa of right ear, Sepsis Admit Date/Time: 02/27/25 07:55 Admit Provider: Dung Jones Attending Provider: Dung Jones Primary Care Provider: Nini Moreira ED Provider: Shree Diallo
[2025-02-27] MEDS: Ciprofloxacin/Dexameth. 7.5 ML BTL AD ×2 (08:49→20:00)
--- NOTE | 2025-02-27 09:58 | W.PM.HP.N ---
Date of service: 02/27/25 Time of Service: 09:58 Assessment and Plan Assessment and plan (1) Sepsis: Status: Acute Assessment and plan: Tachycardia 106, fever 38.2 and leukocytosis at 12.95 in the ED Source Right ear otitis media (2) Acute malignant otitis externa of right ear: Status: Acute Assessment and plan: As per HPI ongoing IV cipro and ciprodex gtte Blood Cx pending Ear Cx grew pseudomonas IV ketorolac PRN for pain and PRN APAP LMWH for DVT prophylaxis Discussed with Dr. Jones History of Present Illness History of Present Illness Chief Complaint: Pain and swelling to the right ear and face Narrative: This 44 years old morbidly obese patient on GLP-1 with a PMHx of depression , anxiety , peritonsilar cysts with strep throat in 2021 presented to the ED on 02/23/25 for evaluation of increasing pain and swelling involving the right ear and face. The patient was seen in urgent /express care earlier in the afternoon ofloxacin ear drops and oral Augmentin. Pain reported starting a week ago, decreased hearing w right ear w non- foul smelling yellowish drainage, chills last night w/o objective fevers at home. Denies chest pain , nausea, vomiting, constipation, diarrhea or dysuria. The patient developed a fever and was tachycardic in the ED ED workup in positive for CT right sided otitis externa with right-sided otitis media, right mastoid sinus effusion, osteoarthritis of the right TMJ but no evidence of mastoid bony degradation or abscess formation as per CT result, leukocytosis. IV Cipro [address] Kimbrough recommended to continue IV Cipro 400 mg twice daily for pseudomonal coverage and eventually transitioning to 750 mg oral twice daily for outpatient coverage once her symptoms improved. Ciprodex addition also recommended to help with the inflammation. A wick was placed, she tolerated this well and Ciprodex was added. The patient was admittied to the medical surgical floor by the hospitalist team for sepsis, suppurative otitis media. Full code status confirmed , denies cardiovascular medical history, resistant pathogen infection history. Review of Systems All systems reviewed & are unremarkable except as noted in HPI and below PFSH All Active Problems (Updated 02/27/25 @ 08:32 by Shree Diallo DO) Sepsis (Acute) Acute malignant otitis externa of right ear (Acute) Tear of medial meniscus of left knee (Acute) Degenerative arthritis of left knee (Acute) Effusion, left knee (Acute) Morbid obesity with BMI of 40.0-44.9, adult (Acute) Low ferritin (Acute) Anxiety (Acute) Depressive disorder (Chronic) Hair loss (Acute 12/27/13) good response to iron suppl.: ferritin >70 - Medical History History of gestational diabetes mellitus (GDM) Surgical History Ligation of fallopian tube Family History Mother Age: 70 Essential hypertension Depression Hyperlipidemia Father Age: 73 Essential hypertension Heart disease Hyperlipidemia Diabetes Sister No problems noted. Brother No problems noted. Maternal Grandfather , 78 Essential hypertension Heart disease Hyperlipidemia Stroke Paternal Grandfather , 78 Diabetes Essential hypertension Depression Heart disease Hyperlipidemia Stroke Maternal Grandmother Breast cancer Diabetes Paternal Grandmother , 80 Essential hypertension Heart disease Daughter No problems noted. Daughter No problems noted. Social History Smoking/Tobacco Use Status: Never Second Hand Exposure: No Smoking risk assessment performed?: Yes Alcohol Intake: current Alcohol Intake frequency: holidays/special occasions only Alcohol type: wine Drug use: Never Substance use type: does not use Caregiver/Support person: No Household members: spouse and children Housing: house Number of Children: 2 Communication Needs: None Education Level: master's degree Do you need help understanding health information?: Never current occupation: works as a teacher at [employer], 3rd, 4th, 5th. Pets and animals: Yes Pets and animals: dog(s) and farm animals Sexually active: Yes Do you think of yourself as: straight/heterosexual Current gender identity: female What is your relationship status?: How often do you talk on the phone with friends or family?: twice per week How often do you get together with friends or relatives?: twice per week Do you belong to any clubs or organized social groups?: no Panel score (0-1 are the most socially isolated patients): 2 Duration: 15-30 minutes/day Frequency: 5-6 times per week Thelma/Zoroastrian: None Special thelma needs: No Seatbelt use: always Helmet use: Yes Helmet use: always Drive intox or ride w/intox sales driver: No Do you feel safe at home: Yes Do you feel safe in your relationship?: Yes Female Reproductive History Menstrual control method: permanent sterilization History History 2 Para 2 Hx # Term Pregnancies Multiple births Hx # Pregnancies Ectopic pregnancies AB induced Hx Number of Living Children AB spontaneous Meds Allergies and Home Medications Allergies Allergy/AdvReac Type Severity Reaction Status Date / Time glyburide Allergy Mild Skin Rash Verified 02/26/25 16:41 Home Medications ?Medication ?Instructions ?Recorded ?Confirmed ?Type iron 18 mg tablet 65 mg PO DAILY 01/18/18 02/27/25 History cholecalciferol (vitamin D3) 10 4,000 unit PO DAILY 02/16/23 02/27/25 History mcg (400 unit) tablet (Vitamin D3) semaglutide (weight loss) 2.4 2.4 mg (0.75 mL) subcut QWEEK #3 mL 12/10/24 02/27/25 Rx mg/0.75 mL subcutaneous pen injector amoxicillin 875 mg-potassium 1 tab PO Q12H #14 tabs 02/26/25 02/27/25 Rx clavulanate 125 mg tablet ofloxacin 0.3 % ear drops 10 drp otic (ear) DAILY 7 days #5 02/26/25 02/27/25 Rx mL Exam Narrative Exam Narrative: Alert and oriented X4, no neck lymphdenopathy, non meningeal signs, right sided face swelling and redness from auricle to mandibular joint w/o restriction, no swelling or pain at the mastoid bone site, no drainage fro right ear, wick in place, otherwise facial structures are unremarkable, neurologically intact, Clear lungs, S1, S2 regular , no murmur, abdomen is non- acute , no CVA tenderness Results Labs 02/27/25 03:50 02/27/25 03:50 Labs: Laboratory Results - last 24 hr 02/27/25 03:50 WBC 12.95 H RBC 4.99 Hgb 13.1 Hct 41.2 MCV 83 MCH 26.3 L MCHC 31.8 L RDW 14.0 Plt Count 371 MPV 10.4 Immature Gran % 0.2 Neutrophils % 63.5 Lymphocytes % 27.3 Monocytes % 6.9 Eosinophils % 1.4 Basophils % 0.7 Nucleated RBC % 0.0 Absolute Neutrophils 8.22 H Absolute Lymphocytes 3.54 H Absolute Monocytes 0.89 H Absolute Eosinophils 0.18 Absolute Basophils 0.09 ESR 17 Sodium 141 Potassium 3.7 Chloride 103 Carbon Dioxide 28.8 Anion Gap 9.2 BUN 16 Creatinine 0.7 Est GFR (CKD-EPI 2020) 109.30 Glucose 105 Hemoglobin A1c 5.4 Calcium 9.2 C-Reactive Protein 1.86 H Serum HCG, Qual Negative Last Vital Signs Temp 36.6 C 02/27/25 07:53 Pulse 86 02/27/25 07:53 Resp 16 02/27/25 07:53 BP 124/88 02/27/25 07:53 Pulse Ox 100 02/27/25 07:53 Time Spent Time spent with Patient: >75 minutes Time was spent: preparing to see the patient(eg.review tests), obtaining and/or reviewing separately otained hiistory, ordering medications,tests, procedures, referring, communicating with other health direct care provider, indepentently interpreting results, counseling the patient, care coordination and other
[2025-02-27] MEDS: Ketorolac 15 MG/ML VIAL IVP (11:19)
[2025-02-27] MEDS: Acetaminophen 500 MG TAB 1000 MG PO (11:19)
--- NOTE | 2025-02-27 11:29 | NUR.NOTE ---
Nursing Note: Pt ws offered and declined snack, meal tray or fluids several times thus far through shift. Took in approx 100 ml water with pills. Declines food again for lunch.
--- NOTE | 2025-02-27 12:26 | PDOC.CMIN ---
Date of service: 02/27/25 Time of Service: 12:26 Care Management Initial Assmt Initial Assessment Reason for Hospitalization: Acute malignant otitis externa of right ear, sepsis Functional Status/Living Situation Patient Presentation: Pauly was lying in bed, in the ED, when CM met with her; she is admitted and being held in the ED until a bed becomes available on med/surge. She was pleasant and engaged well in conversation. She stated that she had an ear infection that she was seen at Urgent care for recently, and was given oral antibiotics. She presented to the ED after waking up with pain and swelling in her face/ear. Per report, Pauly is being treated with IV antibiotics and pain medication; she stated that her pain is well controlled at the time of the visit. Pauly lives in [place] with her and two daughters (one daughter is in College at [employer], the other is a senior at [employer]). 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 She is independent in the community, and does not anticipate the need for services at home. CM will continue to follow. Town of Residence: [place] Resides with: Spouse ( and children) Natural Supports: Dick Employment Status: Employed (Teacher at [employer]) Instrumental Activities of Daily Living (ADLs): Independent Activities/Hobbies/SocialSupport: reading Medications Medication Management: No Issues/Barriers identified Advance Directives Advance Directives: Do you have an Advance Directive: N 08/08/12, 17:44 AD On File at [facility]: N 08/08/12, 10:41 Date Asked 02/27/25 Today, 03:33 AD Date Reviewed COLST On File at [facility] COLST Date Scanned Code Status Resuscitation Status Full Code Insurance Coverage/Financial Issues Insurance: / Care Team Visit Care Team Role Provider Type Juany Hahn APRN MD [facility] STAFF PHYSICIAN Nini Moreira MD Primary Care Provider [facility] STAFF PHYSICIAN Shree Diallo DO Emergency Provider [facility] STAFF PHYSICIAN Dung Jones Admit Provider [facility] STAFF PHYSICIAN Attending Provider Discharge Potential Discharge Needs: PCP F/U Appt Anticipated Barriers to Discharge: None Identified Patient/Family Education Needs: Review discharge instructions, discuss Ask Me Three Transportation: Private vehicle Plan: Anticipate Pauly will return home once medically cleared. Her will drive her home via private vehicle. She will follow up with her PCP and discharge plan of care. CM will continue to follow. Social Determinants of Health Screening Will the Patient Participate in the Screening?: Unable to obtain PFSH All Active Problems (Updated 02/27/25 @ 08:32 by Shree Diallo DO) Sepsis (Acute) Acute malignant otitis externa of right ear (Acute) Tear of medial meniscus of left knee (Acute) Degenerative arthritis of left knee (Acute) Effusion, left knee (Acute) Morbid obesity with BMI of 40.0-44.9, adult (Acute) Low ferritin (Acute) Anxiety (Acute) Depressive disorder (Chronic) Hair loss (Acute 12/27/13) good response to iron suppl.: ferritin >70 - Medical History History of gestational diabetes mellitus (GDM) Surgical History Ligation of fallopian tube Family History Mother Age: 70 Essential hypertension Depression Hyperlipidemia Father Age: 73 Essential hypertension Heart disease Hyperlipidemia Diabetes Sister No problems noted. Brother No problems noted. Maternal Grandfather , 78 Essential hypertension Heart disease Hyperlipidemia Stroke Paternal Grandfather , 78 Diabetes Essential hypertension Depression Heart disease Hyperlipidemia Stroke Maternal Grandmother Breast cancer Diabetes Paternal Grandmother , 80 Essential hypertension Heart disease Daughter No problems noted. Daughter No problems noted. Social History Smoking/Tobacco Use Status: Never Second Hand Exposure: No Smoking risk assessment performed?: Yes Alcohol Intake: current Alcohol Intake frequency: holidays/special occasions only Alcohol type: wine Drug use: Never Substance use type: does not use Caregiver/Support person: No Household members: spouse and children Housing: house Number of Children: 2 Communication Needs: None Education Level: master's degree Do you need help understanding health information?: Never current occupation: works as a teacher at [employer], 3rd, 4th, 5th. Pets and animals: Yes Pets and animals: dog(s) and farm animals Sexually active: Yes Do you think of yourself as: straight/heterosexual Current gender identity: female What is your relationship status?: How often do you talk on the phone with friends or family?: twice per week How often do you get together with friends or relatives?: twice per week Do you belong to any clubs or organized social groups?: no Panel score (0-1 are the most socially isolated patients): 2 Duration: 15-30 minutes/day Frequency: 5-6 times per week Thelma/Roman Catholic: None Special thelma needs: No Seatbelt use: always Helmet use: Yes Helmet use: always Drive intox or ride w/intox rail car driver: No Do you feel safe at home: Yes Do you feel safe in your relationship?: Yes Female Reproductive History Menstrual control method: permanent sterilization History History 2 Para 2 Hx # Term Pregnancies Multiple births Hx # Pregnancies Ectopic pregnancies AB induced Hx Number of Living Children AB spontaneous
--- NOTE | 2025-02-27 15:36 | W.PC.ACHO ---
Registration Status: ADM IN Primary Language: Preferred Language: Chinese ED Information & Data Chief Complaint EarProblem 02/27/25 03:30 Chief Complaint EarProblem 02/27/25 03:27 Triage Note Arrives via POV from home, c 02/27/25 03:27 /o R ear pain and facial swelling. Cannot hear out of right ear. Pain is radiating down into jaw. took tylenol 6pm and ibuprofen 10pm. Had 2 cavities filled on the same side about 1 week ago. Medical / Surgical History (Last Reviewed 02/27/25 @ 03:30 by Barron Schreiber MD) History of gestational diabetes mellitus (GDM) (Last Reviewed 02/26/25 @ 17:01 by DOMINGUEZ Tapia) Ligation of fallopian tube Most Recent Vital Signs Temperature 36.6 C 02/27/25 12:15 Temperature Source Tympanic 02/27/25 12:15 Pulse 82 02/27/25 12:15 Respiratory Rate 16 02/27/25 12:15 Blood Pressure 121/81 02/27/25 12:15 Blood Pressure Mean 94 02/27/25 12:15 Blood Pressure Position Sitting 02/27/25 03:32 Pulse Oximetry 100 02/27/25 12:15 Oxygen Delivery Method Room Air 02/27/25 12:15 Oxygen Flow Rate 0 02/27/25 12:15 Pain Level 10 02/27/25 03:32 Allergies glyburide Allergy (Mild, Verified 02/26/25 16:41) Skin Rash Precautions Isolation Standard precaution 02/27/25 03:30 Active Medications Generic Name Dose Route Start Last Admin Trade Name Laura PRN Reason Stop Dose Admin Ciprofloxacin/Dexamethasone 7.5 ml 02/27/25 08:30 02/27/25 15:14 Ciprofloxacin/Dexameth. 7.5 Ml Btl AD Not Given BID BENITA Iohexol 100 ml 02/27/25 04:30 02/27/25 04:30 Omnipaque 350 Mg/Ml 100 Ml Btl IJ 03/29/25 23:59 100 ml DIRECTED BENITA Administration Sodium Chloride 0 ml 02/27/25 08:30 02/27/25 15:15 Normal Saline Flush 10 Ml Syr IVP Not Given BID BENITA Sodium Chloride 50 ml 02/27/25 04:30 02/27/25 04:30 Normal Saline - Diluent 50 Ml Vial IJ 50 ml DIRECTED BENITA Administration Sodium Chloride 0 ml 02/27/25 04:28 02/27/25 04:30 Normal Saline Flush 10 Ml Syr IVP 10 ml PRN PRN Administration IV IV Catheter Type [Right Peripheral IV Antecubital] IV Catheter Gauge [Right 20 Antecubital] Diet Orders Category Date Time Status Regular/Normal [DIET] Nutrition 02/27/25 Lunch Active Diagnostics 02/27/25 Range/Units 03:50 WBC 12.95 H (4.4-10.8) 10^3/uL RBC 4.99 (3.93-5.22) 10^6/uL Hgb 13.1 (11.2-15.7) g/dL Hct 41.2 (36.0-46.0) % MCV 83 (80-95) fL MCH 26.3 L (27.0-33.0) pg MCHC 31.8 L (32.0-36.0) % RDW 14.0 (11.7-14.6) % Plt Count 371 (130-400) 10^3/uL MPV 10.4 (8.0-11.0) fL Immature Gran % 0.2 % Neutrophils % 63.5 % Lymphocytes % 27.3 % Monocytes % 6.9 % Eosinophils % 1.4 % Basophils % 0.7 % Nucleated RBC % 0.0 (0.0-0.3) % Absolute Neutrophils 8.22 H (1.2-6.7) 10^3/uL Absolute Lymphocytes 3.54 H (1.2-3.4) 10^3/uL Absolute Monocytes 0.89 H (0.1-0.8) 10^3/uL Absolute Eosinophils 0.18 (0.0-0.7) 10^3/uL Absolute Basophils 0.09 (0.0-0.2) 10^3/uL ESR 17 (0-20) mm/hr Sodium 141 (136-145) mmol/L Potassium 3.7 (3.5-5.1) mmol/L Chloride 103 (98-107) mmol/L Carbon Dioxide 28.8 (21.0-32.0) mmol/L Anion Gap 9.2 (3-11) mmol/L BUN 16 (7-18) mg/dL Creatinine 0.7 (0.55-1.02) mg/dL Est GFR (CKD-EPI 2020) 109.30 (mL/min/1.73m2) Glucose 105 (74-106) mg/dL Hemoglobin A1c 5.4 (<5.7) % Calcium 9.2 (8.5-10.1) mg/dL C-Reactive Protein 1.86 H (<or=0.5) mg/dL Serum HCG, Qual Negative 02/27/25 04:12 Blood Culture - Pending Blood 02/27/25 04:22 Blood Culture - Pending Blood Intake and Output - 24 Hour Total 02/27/25 03:24 thru 02/27/25 06:00 Intake Total 1200 Balance 1200 Weight 105.233 kg Intake: IV 1200 Falls Risk Assessment History of Falls No History 02/27/25 03:32 Contributing Factors No Factors 02/27/25 03:32 Ambulatory Aids Independent 02/27/25 03:32 Tubes/Lines None 02/27/25 03:32 Gait Evaluation No gait disturbance 02/27/25 03:32 Cognition No cognitive impairment 02/27/25 03:32 Fall Total Score 0 02/27/25 03:32 Level of Risk Standard/Low Risk 02/27/25 03:32 Problems (Last Reviewed 02/27/25 @ 03:30 by Barron Schreiber MD) Sepsis (Acute) Acute malignant otitis externa of right ear (Acute) Anxiety (Acute) Depressive disorder (Chronic) Notes 02/27/25 11:29 Nursing Notes by Mona Rosen Nursing Note: Pt ws offered and declined snack, meal tray or fluids several times thus far through shift. Took in approx 100 ml water with pills. Declines food again for lunch. Initialized on 02/27/25 11:29 - END OF NOTE v v v v v v v v v Sending and/or Receiving Nurses: Please use comment section below to note any information pertinent to the patient hand-off not included above. Information / Comments: Patient oriented, alert, independent arrives for further treatment. Report received from: Mona MORFIN ED
[2025-02-27] MEDS: Pantoprazole 40 MG VIAL IVP (19:59)
[2025-02-27] MEDS: Acetaminophen 325 MG TAB 650 MG PO (20:49)
[2025-02-28 02:35] VITALS: BP 133/86; PULSE 82; RESP 22; TEMP 36.9; O2SAT 98
[2025-02-28] MEDS: Ketorolac 15 MG/ML VIAL IVP ×2 (02:41→12:10)
[2025-02-28] MEDS: CIPROFLOXACIN 400 MG/200 ML BAG 200 MG IVPB (04:08)
[2025-02-28 07:19] LABS: Abs Immature Grans 0.02 10^3/uL (0.0-0.06); HCT 36.2 % (36.0-46.0); HGB 11.9 g/dL (11.2-15.7); Immature Grans % 0.2 %; MCH 26.7 pg (27.0-33.0); MCHC 32.9 % (32.0-36.0); MCV 81 fL (80-95); MPV 10.5 fL (8.0-11.0); Platelet Count 347 10^3/uL (130-400); RBC 4.45 10^6/uL (3.93-5.22); RDW 13.9 % (11.7-14.6); RDW-SD 40.9 fL; WBC 8.75 10^3/uL (4.4-10.8)
[2025-02-28 07:26] VITALS: BP 117/82; PULSE 79; RESP 16; TEMP 36.1; O2SAT 98
[2025-02-28 07:27] LABS: Anion Gap 6.7 mmol/L (3-11); BUN 7 mg/dL (7-18); CO2 28.3 mmol/L (21.0-32.0); Calcium 9.1 mg/dL (8.5-10.1); Chloride 105 mmol/L (98-107); Estimated GFR 113.44 (mL/min/1.73m2); Glucose 103 mg/dL (74-106); Potassium 3.9 mmol/L (3.5-5.1); Sodium 140 mmol/L (136-145)
[2025-02-28] MEDS: Normal Saline Flush 10 ML SYR IVP (09:10)
[2025-02-28] MEDS: Pantoprazole 40 MG VIAL IVP (09:10)
[2025-02-28] MEDS: Enoxaparin 40 MG/0.4 ML SYR SC (09:11)
[2025-02-28] MEDS: Ciprofloxacin/Dexameth. 7.5 ML BTL AD (09:12)
--- NOTE | 2025-02-28 09:49 | W.PM.PROGNOT ---
Assessment and Plan Assessment and plan (1) Sepsis: Status: Acute Assessment and plan: at Tachycardia 106, fever 38.2 and leukocytosis at 12.95 in the ED Source Right ear otitis media (2) Acute malignant otitis externa of right ear: Status: Acute Assessment and plan: As per HPI Continue IV cipro and ciprodex gtte Blood Cx negative at 24 H Ear Cx grew pseudomonas Febrile illness temp 38.2 at 03AM on 02/27/25 Ongoing IV ketorolac PRN for pain and PRN APAP LMWH for DVT prophylaxis Discussed with Dr. Robert JI on Exam Narrative Exam Narrative: Alert and oriented X4, no neck lymphdenopathy, non meningeal signs, right sided face swelling and redness from auricle to mandibular joint w/o restriction, no swelling or pain at the mastoid bone site, no drainage fro right ear, wick in place, otherwise facial structures are unremarkable, neurologically intact, Clear lungs, S1, S2 regular , no murmur, abdomen is non- acute , no CVA tenderness Objective Last Vital Signs Temp 36.1 C L 02/28/25 07:26 Pulse 79 02/28/25 07:26 Resp 16 02/28/25 07:26 BP 117/82 02/28/25 07:26 Pulse Ox 98 02/28/25 07:26 Laboratory Results - last 24 hr 02/28/25 06:40 WBC 8.75 RBC 4.45 Hgb 11.9 Hct 36.2 MCV 81 MCH 26.7 L MCHC 32.9 RDW 13.9 Plt Count 347 MPV 10.5 Immature Gran % 0.2 Neutrophils % 63.2 Lymphocytes % 26.5 Monocytes % 7.8 Eosinophils % 1.5 Basophils % 0.8 Nucleated RBC % 0.0 Absolute Neutrophils 5.53 Absolute Lymphocytes 2.32 Absolute Monocytes 0.68 Absolute Eosinophils 0.13 Absolute Basophils 0.07 Sodium 140 Potassium 3.9 Chloride 105 Carbon Dioxide 28.3 Anion Gap 6.7 BUN 7 Creatinine 0.6 Est GFR (CKD-EPI 2020) 113.44 Glucose 103 Calcium 9.1
[2025-02-28 11:14] VITALS: BP 119/75; PULSE 86; RESP 16; TEMP 36; O2SAT 99
--- NOTE | 2025-02-28 12:26 | CHAPLAIN ---
Pauly was walking around her room when I visited. She was pleasant and easily engaged in conversation. Her is at [facility] today for two appointments and Pauly said she'll be checking his portal to learn about the appointments. 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 I explained my role and offered support.
--- NOTE | 2025-02-28 12:58 | W.PM.DS.N ---
Date of service: 02/28/25 Time of Service: 12:58 DS: Diagnosis Discharge Diagnosis (1) Sepsis: Status: Acute (2) Acute malignant otitis externa of right ear: Status: Acute Discharge Plan Disposition Patient Disposition: Home Condition: Improving Discharge Details Reason For Visit: Malignant Otitis Externa, Sepsis Admit Date/Time: 02/27/25 07:55 Admit Provider: Dung Jones Attending Provider: Dung Jones Primary Care Provider: Nini Moreira Hospital Course Hospital Course: This 44 years old morbidly obese patient on GLP-1 with a PMHx of depression , anxiety , peritonsilar cysts with strep throat in 2021 presented to the ED on 02/27/25 for evaluation of increasing pain and swelling involving the right ear and face. The patient was seen in urgent /express care earlier in the afternoon ofloxacin ear drops and oral Augmentin. ED workup in positive for CT right sided otitis externa with right-sided otitis media, right mastoid sinus effusion, osteoarthritis of the right TMJ but no evidence of mastoid bony degradation or abscess formation as per CT result, leukocytosis, tachycardia without hypotension. IV Cipro 400 mg initiated with ENT Dr. Kimbrough consultation confirming treatment with recommendation for Ciprodex addition and oral dosing at discharge.The patient was admitted to the medical surgical floor by the hospitalist team for sepsis, suppurative/ malignant otitis media. Ear cultures - drainage grew pseudomonas. Blood culture were negative.The patient clinically improved, remained afebrile for 24 hours and his hemodynamically stable. The patient will be discharged home on oral antibiotics and will follow- up with PCP within 7 days of discharge. ENT referral completed. Keep wick inserted to the right ear canal in the ED until seen by PCP or ENT. Discussed with Dr. Jones Home Meds and New Rx's Prescriptions: New acetaminophen 325 mg Tablet 650 mg PO Q4H PRN PRNQty: 30 0RF ciprofloxacin-dexamethasone 0.3-0.1 % drops,suspension 4 drp otic (ear) Q12H Qty: 15 0RF Rx Instructions: For 10 days ibuprofen 400 mg tablet 400 mg PO Q8H PRNQty: 15 0RF Rx Instructions: Take with food ciprofloxacin HCl 750 mg tablet 750 mg PO Q12H Qty: 16 0RF Continued cholecalciferol (vitamin D3) [Vitamin D3] 10 mcg (400 unit) tablet 4,000 unit PO DAILY iron 18 MG tablet 65 mg PO DAILY semaglutide (weight loss) 2.4 mg/0.75 mL pen injector 2.4 mg subcut QWEEK Qty: 3 5RF Discontinued ofloxacin 0.3 % drops 10 drp otic (ear) DAILY 7 Days Qty: 5 0RF amoxicillin-pot clavulanate 875-125 mg tablet 1 tab PO Q12H Qty: 14 0RF Discharge Instructions Stand Alone Forms: Nursing Discharge Form Referrals: Nini Moreira MD [Primary Care Provider, Medicine] Referral Note: Follow-up with PCP e within 7 days of discharge Ten Kimbrough MD [[facility] STAFF PHYSICIAN, ENT Surgical] Referral Note: On cipro PO 750 mg BID and Ciprodex for total of 10 days of treatment after IV cipro inpatient CT report Right otitis externa and mild right otitis media with right mastoid sinus effusion. Edema of the right parotid gland secondary to the quadrant canal inflammation. Activity:: Activity as Tolerated Equipment/Supplies:: No Equipment Needed Diet:: heart healthy Discharge Orders Discharge Orders: Discharge Order (Routine); Ordered 02/28/25 Ordered By: Juany Hahn DS: Summary Time Spent with Patient providing and/or coordinating discharge services: Greater than 30 minutes Status at Discharge Functional status at discharge: independent ambulation Overall status at discharge: patient is progressing back to baseline Mental Status: mental status grossly normal Speech and Movement: speech and movement normal Mood: congruent mood Affect: normal affect Exam Narrative Exam Narrative: Alert and oriented X4, no neck lymphdenopathy, non meningeal signs, receding right-sided face swelling , no mandibular joint restriction, no swelling or pain at the mastoid bone site, no drainage fro right ear, wick in place, otherwise facial structures are unremarkable, neurologically intact, unlabored breathing, clear lungs, S1, S2 regular , no murmur, abdomen is non- acute Psych Mental Status: mental status grossly normal Speech and Movement: speech and movement normal Mood: congruent mood Affect: normal affect DS: Data Vitals/I&O Vitals and I&O: Vital Signs Temperature 36 C L 02/28/25 11:14 Temperature Source Temporal Artery Scan 02/28/25 11:14 Pulse 86 02/28/25 11:14 Respiratory Rate 16 02/28/25 11:14 Blood Pressure 119/75 02/28/25 11:14 Blood Pressure Mean 89 02/28/25 11:14 Blood Pressure Position Sitting 02/27/25 03:32 Pulse Oximetry 99 02/28/25 11:14 Oxygen Delivery Method Room Air 02/28/25 11:14 Oxygen Flow Rate 0 02/28/25 11:14 Pain Level 5 02/28/25 02:35 Intake & Output 02/27/25 02/28/25 02/28/25 23:59 11:59 23:59 Intake Total 200 / 1400 Balance 200 / 1400 Weight 105.2 kg 103.9 kg Intake: IV 200 / 1400 Other: Urine Color Yellow Yellow Urine Odor Normal Normal Comment Pt voids ind. in the toilet. Data Completed and Pending Labs on day of discharge: Labs from last 24 hours 02/28/25 06:40 WBC 8.75 RBC 4.45 Hgb 11.9 Hct 36.2 MCV 81 MCH 26.7 L MCHC 32.9 RDW 13.9 Plt Count 347 MPV 10.5 Immature Gran % 0.2 Neutrophils % 63.2 Lymphocytes % 26.5 Monocytes % 7.8 Eosinophils % 1.5 Basophils % 0.8 Nucleated RBC % 0.0 Absolute Neutrophils 5.53 Absolute Lymphocytes 2.32 Absolute Monocytes 0.68 Absolute Eosinophils 0.13 Absolute Basophils 0.07 Sodium 140 Potassium 3.9 Chloride 105 Carbon Dioxide 28.3 Anion Gap 6.7 BUN 7 Creatinine 0.6 Est GFR (CKD-EPI 2020) 113.44 Glucose 103 Calcium 9.1 Preliminary micro results at discharge 02/27/25 04:12 Blood Blood Culture - Preliminary NO GROWTH 24 HOURS 02/27/25 04:22 Blood Blood Culture - Preliminary NO GROWTH 24 HOURS PFSH All Active Problems (Updated 02/27/25 @ 08:32 by Shree Diallo DO) Sepsis (Acute) Acute malignant otitis externa of right ear (Acute) Tear of medial meniscus of left knee (Acute) Degenerative arthritis of left knee (Acute) Effusion, left knee (Acute) Morbid obesity with BMI of 40.0-44.9, adult (Acute) Low ferritin (Acute) Anxiety (Acute) Depressive disorder (Chronic) Hair loss (Acute 12/27/13) good response to iron suppl.: ferritin >70 - Medical History History of gestational diabetes mellitus (GDM) Surgical History Ligation of fallopian tube Family History Mother Age: 70 Essential hypertension Depression Hyperlipidemia Father Age: 73 Essential hypertension Heart disease Hyperlipidemia Diabetes Sister No problems noted. Brother No problems noted. Maternal Grandfather , 78 Essential hypertension Heart disease Hyperlipidemia Stroke Paternal Grandfather , 78 Diabetes Essential hypertension Depression Heart disease Hyperlipidemia Stroke Maternal Grandmother Breast cancer Diabetes Paternal Grandmother , 80 Essential hypertension Heart disease Daughter No problems noted. Daughter No problems noted. Social History Smoking/Tobacco Use Status: Never Second Hand Exposure: No Smoking risk assessment performed?: Yes Alcohol Intake: current Alcohol Intake frequency: holidays/special occasions only Alcohol type: wine Drug use: Never Substance use type: does not use Caregiver/Support person: No Household members: spouse and children Housing: house Number of Children: 2 Communication Needs: None Education Level: master's degree Do you need help understanding health information?: Never current occupation: works as a teacher at [employer], 3rd, 4th, 5th. Pets and animals: Yes Pets and animals: dog(s) and farm animals Sexually active: Yes Do you think of yourself as: straight/heterosexual Current gender identity: female What is your relationship status?: How often do you talk on the phone with friends or family?: twice per week How often do you get together with friends or relatives?: twice per week Do you belong to any clubs or organized social groups?: no Panel score (0-1 are the most socially isolated patients): 2 Duration: 15-30 minutes/day Frequency: 5-6 times per week Thelma/Baptism: None Special thelma needs: No Seatbelt use: always Helmet use: Yes Helmet use: always Drive intox or ride w/intox emergency detail driver: No Do you feel safe at home: Yes Do you feel safe in your relationship?: Yes Female Reproductive History Menstrual control method: permanent sterilization History History 2 Para 2 Hx # Term Pregnancies Multiple births Hx # Pregnancies Ectopic pregnancies AB induced Hx Number of Living Children AB spontaneous Time Spent with Patient Time Spent with Patient: >85 minutes Time was spent: preparing to see the patient(eg.review tests), obtaining and/or reviewing separately otained hiistory, ordering medications,tests, procedures, referring, communicating with other health hiv/aids care nurse, indepentently interpreting results, counseling the patient, care coordination and other
--- NOTE | 2025-02-28 16:25 | PDOC.CMDIS ---
Date of service: 02/28/25 Time of Service: 16:26 LACE Index Scoring Tool Questions: Length of Stay (in days): 1 Was the patient admitted via the E.D.?: Yes E.D. Visits: 0 Answers: Total Score: 4 Risk of Readmission: Low Risk Care Management Discharge Plan Reason for Hospitalization: Malignant Otitis externa of right ear Discharge Plan: Pauly returned home today with no new services. Her drove her home via private vehicle. She will follow up with her PCP and discharge plan of care. She was happy to be going home. Patient/Family Education Needs: Review discharge instructions and limitations, discussion of self care needs including ask me three.
== END 2025-02-28 15:38 | disposition home or self-care (01) | DRG 872 ==
LOC: ER 03:33 → EDHOLD 08:08 → MS 15:18
PROVIDERS: Emergency Medicine; Admitting Provider Family Medicine; Emergency Provider Student in an Organized Health Care Education/Training Program; PCP Family Medicine; Responsible Provider Nurse Practitioner Acute Care; Visit Provider Family Medicine
DX: A41.9 Sepsis, unspecified organism (principal); H60.21 Malignant otitis externa, right ear; Z68.41 Body mass index [BMI] 40.0-44.9, adult; E66.01 Morbid (severe) obesity due to excess calories; F32.A Depression, unspecified; Z79.899 Other long term (current) drug therapy; F41.9 Anxiety disorder, unspecified; M17.12 Unilateral primary osteoarthritis, left knee; B96.5 Pseudomonas (aeruginosa) (mallei) (pseudomallei) as the cause of diseases classified elsewhere
CPT/HCPCS: 00123; 36415; 80048; 85652; 87040; 96365; 96375; 99285; J1650; 70482; 83036; 84703; 85025; 86140; 99223; 99239; J0744; J1885; J2270; J2470; J3490

== ENCOUNTER 2025-03-19 01:30 | Outpatient (CLI) | payer BC, SELFPAY ==
--- NOTE | 2025-03-19 07:59 | DI.MAMMO_ITS ---
Exam(s) MAMMO SCREENING EXAM: MAMMO SCREENING CLINICAL HISTORY: screening,z12.39 TECHNIQUE: Bilateral full field digital CC and MLO mammographic images were obtained with 3D tomosynthesis and utilizing computer aided detection (CAD). COMPARISON: This is a baseline examination. There are no priors for comparison. FINDINGS: Masses/Architectural Distortion: No suspicious masses or areas of architectural distortion are present. Microcalcifications: No suspicious pleomorphic-type are seen. Skin Thickening/Nipple Retraction: None. IMPRESSION: 1. There is no evidence for malignancy seen at this time. 2. Unless there is more urgent need, screening mammography is recommended, as per [place] [employer] guidelines. BI-RADS Category 1 - Negative Breast Density - Category A - The breast are almost entirely fatty. Breast density Category C or D implies that the patient has dense breast tissue. Dense breast tissue can make it harder to find cancer on a mammogram. Dense breast tissue is also associated with an increased risk of breast cancer. This information about the result of the mammogram report was provided to the patient to raise their awareness. Use this report when you speak with the patient about their risks for breast cancer, which includes their family history. At that time, you may recommend additional screening tests (Ultrasound or MRI) as these tests may add significant information. A negative radiographic report should not delay biopsy if a dominant or clinically suspicious mass is present. Up to ten percent of cancers are not identified on mammography. A negative report may reinforce clinical impression. Adenosis and dense breasts may obscure an underlying neoplasm. False positive reports average 6 to 10%. Patient will receive a letter notifying them of these results.
== END 2025-03-19 01:50 ==
LOC: DI 01:30
PROVIDERS: PCP Family Medicine; Visit Provider Nurse Practitioner Family
DX: Z12.31 Encounter for screening mammogram for malignant neoplasm of breast (principal)
CPT/HCPCS: 77063; 77067